=== PATIENT | female | born 1950 | race Caucasian/White ===

== ENCOUNTER 2019-06-08 10:01 | Inpatient (IN) ==
--- OUTSIDE RECORDS SUMMARY | 2019-06-08 10:03 | External Medical Summary | Continuity of Care Document ---
:1950 Author Name Susan Oviedo, Provider Address Unavailable Unavailable , Care Team Providers Name Role Phone Unavailable Unavailable Unavailable Problems Active medical history not documented Allergies and Adverse Reactions Allergy history not documented Medications Medications not documented Procedures Procedures not documented Immunizations Immunizations not documented Plan of Treatment Planned Observations Planned Goals not documented Results No Known Results Results not documented
[2019-06-08] MEDS ORDERED: ONDANSETRON INJ 2 MG/ML 2 ML VIAL IV STA (11:13)
[2019-06-08] MEDS ORDERED: KETOROLAC 30 MG/ML VIAL IV STA (11:13)
[2019-06-08] MEDS ORDERED: SODIUM CHLORIDE 0.9% 1000ML 1,000 ML IV SCH (11:15)
--- NOTE | 2019-06-08 11:31 | Emergency Department Note ---
History of Present Illness General Chief complaint: Flank Pain Stated complaint: PAIN IN RIGHT SIDE Time Seen by Provider: 06/08/19 11:04 History of Present Illness Maximum Pain Intensity: 8 This 69-year-old female presents to the ER with chief complaint of intermittent right flank pain that started yesterday. The patient states that when she has the pain it is sharp in nature and rates it at a 10 out of 10. She states that then goes to a dull achy pain that she rates at a 5 out of 10 which is the pain she currently is experiencing. The patient also admits to nausea but denies any vomiting. The patient denies any change in bowel habits. The patient does admit to urinary frequency but denies any dysuria, hematuria. She does admit to urinary urgency. The patient denies any personal history of kidney stones but she has a strong family history of kidney stones in her siblings. Home Medications Home Medications Medication Instructions Recorded Confirmed Type nitrofurantoin monohyd/m-cryst 100 mg PO BID 7 Days #14 cap 06/08/19 Rx [Macrobid] ondansetron 4 mg PO Q8H PRN 4 Days #15 tab 06/08/19 Rx oxycodone 5 mg PO Q6H PRN #12 tab 06/08/19 Rx Past Med/Surg History Medical History Hypertension No significant past surgical history Social History Preferred Language: Serbian Communication Ability: Effective Visual Impairment: No Limitations Hearing Ability: Normal marital status: Current Living Situation: Spouse Feels Safe at Home: Yes Smoking Status: Never smoker Hx Alcohol Use: Yes Review of Systems A total of 10 systems reviewed and were otherwise negative Physical Exam Vital Signs Vital Signs - 24 hr 06/08/19 10:12 06/08/19 11:35 Temperature 37.6 C H Temperature Source Oral Sepsis Recent Fever Within 48 Hours No Sepsis New/Unexplained Change in Mental Status No Sepsis Action Taken by Nursing No Action Required Pulse Rate 86 86 Pulse Rhythm Regular Respiratory Rate 18 18 Respiratory Depth Normal Blood Pressure 145/84 H Blood Pressure Mean 104 Pulse Oximetry 96 96 Oxygen Delivery Method Room Air Room Air GENERAL: 69-year-old white female appears in no acute distress. MENTAL Status: Alert and oriented x3. MOUTH: Mucosa is slightly dry. NECK: Supple, no lymphadenopathy noted. No carotid bruits noted. LUNGS: Clear auscultation without wheezes rales or rhonchi. CARDIAC: Regular rate and rhythm without murmur. Pulses is full and equal throughout. BACK: No CVA tenderness noted. ABDOMEN: Positive bowel sounds all 4 quadrants. Soft, mild tenderness to palpation in the right flank area and suprapubic region otherwise nontender to palpation without organomegaly or masses. EXTREMITIES: No cyanosis or edema noted. Course Administered Medications Discontinued Medications Sodium Chloride (Nss 1000ml) 1,000 mls @ 999 mls/hr IV .Q1H1M [place] Stop: 06/08/19 12:15 Last Admin: 06/08/19 11:38 Dose: 999 mls/hr Documented by: [id number] Ketorolac Tromethamine (Toradol) 30 mg IV NOW STA Stop: 06/08/19 11:14 Last Admin: 06/08/19 11:40 Dose: 30 mg Documented by: [id number] Ondansetron HCl (Zofran) 4 mg IV NOW STA Stop: 06/08/19 11:14 Last Admin: 06/08/19 11:40 Dose: 4 mg Documented by: [id number] Medical Decision Making Differential Diagnosis UTI, pyelonephritis, kidney stone, appendicitis Medical Records Attestation: I reviewed the patient's medical records. Home Medications Current Medication List: was personally reviewed by me Laboratory Data Attestation: I reviewed the patient's lab results. Result diagrams: 06/08/19 11:29 06/08/19 11:29 Lab Results 06/08/19 06/08/19 06/08/19 Range/Units 11:29 11:29 11:35 WBC 9.59 (4.8-10.8) K/uL RBC 4.49 (4.2-5.4) M/uL Hgb 13.9 (12.0-16.0) g/dL Hct 40.0 (37-47) % MCV 89.1 (80-100) fL MCH 31.0 (25-34) pg MCHC 34.8 (32-36) g/dL RDW Std Deviation 42.5 (36.4-46.3) fL RDW Coeff of Nikita 13.0 (11.5-14.5) % Plt Count 183 (130-400) K/uL MPV 10.1 (7.4-10.4) fL Immature Gran % (Auto) 0.2 % Neut % (Auto) 85.9 % Lymph % (Auto) 8.1 % Swisher % (Auto) 5.7 % Eos % (Auto) 0.0 % Baso % (Auto) 0.1 % Immature Gran # (Auto) 0.02 (0.00-0.02) K/uL Neut # (Auto) 8.23 H (1.4-6.5) K/uL Lymph # (Auto) 0.78 L (1.2-3.4) K/uL Swisher # (Auto) 0.55 (0.11-0.59) K/uL Eos # (Auto) 0.00 (0-0.5) K/uL Baso # (Auto) 0.01 (0-0.2) K/uL Sodium 138 (136-145) mmol/L Potassium 3.2 L (3.5-5.1) mmol/L Chloride 103 (98-107) mmol/L Carbon Dioxide 28 (21-32) mmol/L Anion Gap 7.0 (3-11) BUN 14 (7-18) mg/dl Creatinine 0.96 (0.6-1.2) mg/dl Est Cr Clr Drug Dosing 51.6 ml/min Est GFR ( Amer) 70.4 Est GFR (Non-Af Amer) 60.8 BUN/Creatinine Ratio 15.1 (10-20) Glucose 108 H (70-99) mg/dl Calcium 8.8 (8.5-10.1) mg/dl Total Bilirubin 0.9 (0.2-1) mg/dl AST 19 (15-37) U/L ALT 21 (12-78) U/L Alkaline Phosphatase 49 (45-117) U/L Total Protein 7.0 (6.4-8.2) gm/dl Albumin 3.5 (3.4-5.0) gm/dl Globulin 3.5 (2.5-4.0) gm/dl Albumin/Globulin Ratio 1.0 (0.9-2) Lipase 139 (73-393) U/L Urine Color Dark Yellow Urine Appearance Cloudy A (Clear) Urine pH 5.5 (4.5-7.5) Ur Specific [place] 1.015 (1.000-1.030) Urine Protein Trace H (Negative) Urine Glucose (UA) Negative (Negative) Urine Ketones Negative (Negative) Urine Blood 3+ H (Negative) Urine Nitrite Positive A (Negative) Urine Bilirubin Negative (Negative) Urine Urobilinogen Negative (Negative) Ur Leukocyte Esterase 3+ H (Negative) Urine WBC (Auto) >30 H (0-5) /hpf Urine RBC (Auto) >30 H (0-4) /hpf U Hyaline Cast (Auto) 1-5 (0-5) /lpf U Epithel Cells (Auto) >30 H (0-5) /lpf Urine Bacteria (Auto) Negative (Negative) Imaging Data Attestation: I personally reviewed and interpreted this imaging study as follows: My Impression: Proximal right ureteral calculus noted Radiologist's Impression: CT abd pelvis wo con CLINICAL HISTORY: 69 years-old Female presenting with Right flank pain. TECHNIQUE: Multidetector CT of the abdomen and pelvis was performed without the use of intravenous contrast. IV contrast: None. One or more dose lowering techniques were used consistent with the principles of ALARA (as low as reasonably achievable), including automatic exposure control, mA or kV adjustment to individual patient size, and/or use of iterative reconstruction. COMPARISON: None. CT DOSE (mGy.cm): The estimated cumulative dose is 499.78 mGy.cm. 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 Lung bases: Normal heart size. No pericardial or pleural effusion. Minimal dependent changes likely atelectasis. Liver: Normal morphology. Borderline hepatic steatosis. Biliary: No gross biliary ductal dilatation allowing for noncontrast technique. Normal gallbladder. Pancreas: Normal noncontrast appearance. Cystic-appearing lesion along the pancreatic tail. It is unclear if this is emanating from the stomach, pancreas, or less likely the left adrenal gland. This measures 3.1 cm. Spleen: Normal noncontrast appearance. Adrenal glands: Subcentimeter nodule at the lateral limb of the left adrenal g land. This is consistent with a benign adenoma by density. Normal noncontrast appearance of the right adrenal gland. Kidneys and ureters: Staghorn calculus at the upper pole of the left kidney. Bilateral nonobstructing calculi at the lower poles, the larger on the left measuring 5 mm there is additional punctate nonobstructing calculus at the upper pole of the right kidney. Moderate perinephric fat infiltration bilaterally. Minimal pelvocaliectasis of the right kidney with suggestion of tibial thickening. A partially obstructing or nonobstructing 4 mm calculus is evident immediately distal to the right ureteropelvic junction within the proximal right ureter with associated periureteral fat infiltration. The remainder of the right ureter is normal without evidence of calculus or distention. Left ureter nondistended and normal. Bladder: Incompletely evaluated secondary to underdistention. Pelvic organs: Normal noncontrast appearance. Bowel: Diverticulosis of the proximal to mid sigmoid colon to a mild degree. No wall thickening or pericolonic inflammatory change. The appendix is normal. No bowel obstruction. Peritoneal cavity: No free fluid or intraperitoneal gas. Lymph nodes: No gross lymphadenopathy allowing for noncontrast technique. Vasculature: Normal noncontrast appearance. Abdominal wall: Small fat-containing umbilical hernia. Musculoskeletal: Degenerative changes of the spine. IMPRESSION: 1. Partially obstructing or nonobstructing 4 mm calculus in the proximal right ureter immediately distal to the right UPJ. 2. Minimal right hydronephrosis. 3. Bilateral nonobstructing nephrolithiasis with a staghorn calculus at the upper pole the left kidney. 4. Indeterminate 3.1 cm cystic lesion at the tail the pancreas. It is unclear if this originates from the pancreas, stomach, or adjacent left adrenal gland. Dedicated contrast-enhanced pancreas protocol CT or MR is recommended on a nonurgent basis. 5. Diverticulosis coli. Electronically signed by: Abelardo Mooney M.D. 06/08/2019 12:03 PM Dictated: 06/08/19 1153 Transcribed: 06/08/19 1153 Blood Pressure Blood Pressure Findings: Elevated blood pressure Blood Pressure Disposition: elevated BP felt to be situational MDM Narrative The patient was evaluated. IV access was obtained. The patient was given 1 L normal saline wide open. She was given Zofran 4 mg IV push for nausea and Toradol 30 mg IV for pain. CBC and differential, renal profile, LFTs and lipase levels were ordered. Urinalysis was ordered. CT stone study was ordered interpreted by the radiologist and myself as above with a 4 mm proximal right ureteral stone with mild hydro-. There is also a incidental note of a cystic lesion on the tail the pancreas which needs further nonemergent work-up. Labs are reviewed. White count was normal. Urinalysis revealed 3+ blood positive nitrates and positive leukocytes. Urine will be sent for culture. The patient was informed of all findings. The patient was independently evaluated by Dr. Groves who agrees with treatment plan. The patient was discharged home in stable condition. Impression & Plan Ureteral calculus, right, Acute UTI, Cyst of pancreas Discharge Plan Visit Data Chief Complaint: Flank Pain Stated Complaint: PAIN IN RIGHT SIDE ED Provider: Ej Groves ED Midlevel Provider: Stacy Kruger Discharge Problem: Ureteral calculus, right, Acute UTI, Cyst of pancreas Patient Disposition: Home - Self-Care Condition: Good Discharge Instructions Activity Restrictions/Additional Instructions: For your urinary tract infectionpush fluids. Take Macrobid as prescribed. For the kidney stonesstrain all urine, push fluids. Take Zofran as needed for nausea. Ibuprofen 600 mg every 6 hours with food for pain. Take Flomax daily as directed. Take OxyIR as needed for more severe pain. Do not drive while taking the OxyIR. If you have any high fevers, uncontrolled nausea and vomiting, severe pain return the ER. If you do not pass the stone in 4 to 5 days, call Dr. John urology for an appointment. For this pancreatic cystfollow-up with your family doctor to order either a CT or MRI of the pancreas for further evaluation of the pancreas. Forms Stand Alone Forms: [facility], Important Visit Information Prescriptions Prescriptions: New ondansetron 4 mg tablet,disintegrating 4 mg PO Q8H PRN (Reason: nausea and vomiting) 4 Days Qty: 15 RF: 0 nitrofurantoin monohyd/m-cryst [Macrobid] 100 mg capsule 100 mg PO BID 7 Days Qty: 14 RF: 0 oxycodone 5 mg tablet 5 mg PO Q6H PRN (Reason: pain) Qty: 12 RF: 0 Referrals Referrals: Mack Ocampo [Primary Care Provider] - Chad John MD [Surgeon] -
[2019-06-08 11:44] LABS: Basophils # (auto) 0.01 K/uL (0-0.2); Basophils % (auto) 0.1 %; Hemoglobin 13.9 g/dL (12.0-16.0); Immature Granulocytes # (auto) 0.02 K/uL (0.00-0.02); Immature Granulocytes % (auto) 0.2 %; Lymphocytes # (auto) 0.78 K/uL (1.2-3.4); Lymphocytes % (auto) 8.1 %; Mean Corpuscular Hgb Conc 34.8 g/dL (32-36); Mean Corpuscular Volume 89.1 fL (80-100); Mean Platelet Volume 10.1 fL (7.4-10.4); Monocytes # (auto) 0.55 K/uL (0.11-0.59); Monocytes % (auto) 5.7 %; Neutrophils # (auto) 8.23 K/uL (1.4-6.5); Neutrophils % (auto) 85.9 %; Platelet Count 183 K/uL (130-400); RDW Standard Deviation 42.5 fL (36.4-46.3); Red Blood Count 4.49 M/uL (4.2-5.4); White Blood Count 9.59 K/uL (4.8-10.8)
[2019-06-08 11:49] LABS: Appearance Urine Cloudy (Clear); Bacteria Urine Automated Negative (Negative); Bilirubin Urine Negative (Negative); Blood Urine 3+ (Negative); Color Urine Dark Yellow; Epithelial Cell Urine Auto >30 /lpf (0-5); Glucose Urine UA Negative (Negative); Ketones Urine Negative (Negative); Leukocyte Esterase Urine 3+ (Negative); Nitrite Urine Positive (Negative); Protein Urine Trace (Negative); RBC Urine Automated >30 /hpf (0-4); Specific Gravity Urine 1.015 (1.000-1.030); Urobilinogen Urine Negative (Negative); WBC Urine Automated >30 /hpf (0-5); pH Urine 5.5 (4.5-7.5)
[2019-06-08 12:01] LABS: Albumin Level 3.5 gm/dl (3.4-5.0); BUN Creatinine Ratio 15.1 (10-20); Calcium 8.8 mg/dl (8.5-10.1); Creatinine Clr Calc Pharmacy 51.6 ml/min; Est GFR (African American) 70.4; Est GFR (Non-African American) 60.8; Potassium 3.2 mmol/L (3.5-5.1)
[2019-06-08 12:04] LABS: Bilirubin,Total 0.9 mg/dl (0.2-1); Globulin 3.5 gm/dl (2.5-4.0)
--- NOTE | 2019-06-08 12:04 | CT Scan Report ---
CT abd pelvis wo con CLINICAL HISTORY: 69 years-old Female presenting with Right flank pain. TECHNIQUE: Multidetector CT of the abdomen and pelvis was performed without the use of intravenous co ntrast. IV contrast: None. One or more dose lowering techniques were used consistent with the princip les of ALARA (as low as reasonably achievable), including automatic exposure control, mA or kV adjust ment to individual patient size, and/or use of iterative reconstruction. COMPARISON: None. CT DOSE (mGy.cm): The estimated cumulative dose is 499.78 mGy.cm. 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 Lung bases: Normal heart size. No pericardial or pleural effusion. Minimal dependent changes likely a telectasis. Liver: Normal morphology. Borderline hepatic steatosis. Biliary: No gross biliary ductal dilatation allowing for noncontrast technique. Normal gallbladder. Pancreas: Normal noncontrast appearance. Cystic-appearing lesion along the pancreatic tail. It is unc lear if this is emanating from the stomach, pancreas, or less likely the left adrenal gland. This nydia sures 3.1 cm. Spleen: Normal noncontrast appearance. Adrenal glands: Subcentimeter nodule at the lateral limb of the left adrenal gland. This is consisten t with a benign adenoma by density. Normal noncontrast appearance of the right adrenal gland. Kidneys and ureters: Staghorn calculus at the upper pole of the left kidney. Bilateral nonobstructing calculi at the lower poles, the larger on the left measuring 5 mm there is additional punctate nonob structing calculus at the upper pole of the right kidney. Moderate perinephric fat infiltration bilat erally. Minimal pelvocaliectasis of the right kidney with suggestion of tibial thickening. A partiall y obstructing or nonobstructing 4 mm calculus is evident immediately distal to the right ureteropelvi c junction within the proximal right ureter with associated periureteral fat infiltration. The remain marlys of the right ureter is normal without evidence of calculus or distention. Left ureter nondistende d and normal. Bladder: Incompletely evaluated secondary to underdistention. Pelvic organs: Normal noncontrast appearance. Bowel: Diverticulosis of the proximal to mid sigmoid colon to a mild degree. No wall thickening or pe ricolonic inflammatory change. The appendix is normal. No bowel obstruction. Peritoneal cavity: No free fluid or intraperitoneal gas. Lymph nodes: No gross lymphadenopathy allowing for noncontrast technique. Vasculature: Normal noncontrast appearance. Abdominal wall: Small fat-containing umbilical hernia. Musculoskeletal: Degenerative changes of the spine. IMPRESSION: 1. Partially obstructing or nonobstructing 4 mm calculus in the proximal right ureter immediately di stal to the right UPJ. 2. Minimal right hydronephrosis. 3. Bilateral nonobstructing nephrolithiasis with a staghorn calculus at the upper pole the left kidn ey. 4. Indeterminate 3.1 cm cystic lesion at the tail the pancreas. It is unclear if this originates fro m the pancreas, stomach, or adjacent left adrenal gland. Dedicated contrast-enhanced pancreas protoco l CT or MR is recommended on a nonurgent basis. 5. Diverticulosis coli. Electronically signed by: Abelardo Mooney M.D. 06/08/2019 12:03 PM
[2019-06-08] MEDS ORDERED: cefTRIAXone SODIUM 1,000 MG/50 ML BAG IV STA (12:45)
[2019-06-08] MEDS ORDERED: ACETAMINOPHEN 1,000 MG/100 ML VIAL IV PRN (12:56)
--- NOTE | 2019-06-08 13:25 | Urology Consultation ---
Date of Consultation June 08, 2019 Assessment & Plan (1) Ureteral calculus, right: I suspect she has infected urine and a partially obstructing right 4mm ureteral stone I suggest to OR today for stent get cathed urine for culture then start iv abt keep for observation 1-2 days her stone removal will be in a few weeks once urine infection is treated I described stent and she signed consent. NPO since early am and only had gatorade. no solid food since yesterday Present on Admission?: Yes History of Present Illness Reason for Consultation: right ureteral stone Requesting Physician: Inez Nguyễn History of Present Illness I am asked by Inez Kruger to evaluate and treat patient for right ureteral stone. She came to ER with right flank pain. She also has symptoms of UTI. She has had frequent utis. She had a ct scan which shows a right upper ureteral stone 4mm with mild hydro and increased right perinephric and leoncio-ureteral stranding. She also has large 15mm stones in the left upper pole. She is mildly febrile with normal white count. Urine looks dirty, cath urine is pending. Allergies Allergy/AdvReac Type Severity Reaction Status Date / Time Penicillins Allergy Rash Unverified 06/08/19 12:33 Home Medications Home Medications Medication Instructions Recorded Confirmed Type losartan-hydrochlorothiazide 1 tab PO DAILY 06/08/19 06/08/19 History Patient History Medical History Hypertension No significant past surgical history Social History Preferred Language: Emirati Communication Ability: Effective Visual Impairment: No Limitations Hearing Ability: Normal marital status: Current Living Situation: Spouse Feels Safe at Home: Yes Smoking Status: Never smoker Hx Alcohol Use: Yes Review of Systems Review of Systems: PMH- HTN PSH- breast biopsy bening Allergy- pCN decades ago Soc- retired, no tobacco ROS_ + fever, + chills, no chest pain no SOB, bowels fine, + dysuria and frequency, no rash, feels tired. Physical Exam Constitutional: WD/WN, vitals as above + obese Eyes: PERRL, conjunctivae normal, anicteric sclerae Respiratory: normal respiratory effort, lungs clear to auscultation Cardiovascular: RRR, no murmur, no edema Skin: no rashes, warm and dry legs- no edema and no calf tenderness Psychiatric: A+Ox3, euthymic affect Results & Data Vital Signs (Past 12 Hours) Vital Signs Temp Pulse Pulse Resp BP BP Pulse Ox 06/08/19 12:00 76 18 119/51 L 94 06/08/19 11:35 86 18 96 06/08/19 10:12 37.6 C H 86 18 145/84 H 96
--- NOTE | 2019-06-08 14:33 | History & Physical Report ---
Date of Service June 08, 2019 Assessment & Plan (1) Ureteral calculus, right: Admits to [facility] on telemetry for observation Vital signs every 4 hours CBC CMP BNP lipid panel TSH A1c Ceftriaxone 1 g IV every 24 for urinary tract infection and pyuria SCDs and BILL durant for DVT prophylaxis, patient is going to have cystoscopy today Appreciate Dr. Virginia Fontana MD urology recommendations Full code Present on Admission?: Yes (2) Acute UTI: As the above, follow-up urine cultures, continue antibiotics Present on Admission?: Yes (3) Cyst of pancreas: Stable at this time no issues, monitor Present on Admission?: Yes History of Present Illness Chief Complaint: Right flank pain Primary Care Provider: Mack Ocampo Patient is a 69 years old female with past medical history of cyst of pancreas presents to the emergency room with acute urinary tract infection and right flank pain. Patient denies fever chills chest pain shortness of breath abdominal pain syncope near syncope nausea vomiting acute hemoptysis hematuria melena. Complains of urinary frequency urgency and dysuria. Labs are reviewed white blood cell count 9.59,: Hemoglobin 13.9, hematocrit 40, platelets 183, BUN 14, creatinine 0.96, GFR 60.8 glucose 108 ALT 21 AST 19, lipase 139. Urine: Dark yellow, cloudy, 3+ blood, positive nitrate, leukocyte esterase 3+ white blood cell 30. CT scan shows: Partial obstruction or nonobstructing 4 mm calculus in the proximal right ureter immediately distal to the right UPJ. Minimal right hydronephrosis. Right nonobstructing nephrolithiasis with staghorn calculus at the upper pole the left kidney. Intermittent 3.1 cystic lesion in the tail of the pancreas. It is unclear if these are originated from the pancreas, stomach or adjacent left adrenal gland. Dedicated contrast- enhanced pancreas protocol or MRI is recommended. Diverticulosis coli. Allergies Allergy/AdvReac Type Severity Reaction Status Date / Time Penicillins Allergy Rash Unverified 06/08/19 12:33 Home Medications Home Medications Medication Instructions Recorded Confirmed Type losartan-hydrochlorothiazide 1 tab PO DAILY 06/08/19 06/08/19 History Past Med/Surg History Medical History Hypertension No significant past surgical history Social History Preferred Language: Bahamian Communication Ability: Effective Visual Impairment: No Limitations Hearing Ability: Normal marital status: Current Living Situation: Spouse Feels Safe at Home: Yes Smoking Status: Never smoker Hx Alcohol Use: Yes Review of Systems Review of Systems: All systems reviewed & are unremarkable except as noted in HPI & below Physical Exam Constitutional: WD/WN, vitals as above well developed Eyes: PERRL, conjunctivae normal, anicteric sclerae ENMT: external ear and nose normal, oropharynx normal Neck: trachea midline, no thyromegaly Respiratory: normal respiratory effort, lungs clear to auscultation Cardiovascular: RRR, no murmur, no edema Musculoskeletal: no cyanosis or clubbing, extremities motor strength 5/5 Skin: no rashes, warm and dry Neurologic: patellar DTR's 2+ bilat, sensation intact Genitourinary: Right CVA tenderness Lymphatic: no cervical or axillary lymphadenopathy Results & Data Vital Signs (Past 12 Hours) Vital Signs Temp Pulse Pulse Resp BP BP Pulse Ox 06/08/19 13:30 76 26 H 128/57 L 93 06/08/19 13:00 75 23 120/58 L 93 06/08/19 12:00 76 18 119/51 L 94 06/08/19 11:35 86 18 96 06/08/19 10:12 37.6 C H 86 18 145/84 H 96 Code Status & VTE Plan Code Status Full code VTE Prophylaxis Plan VTE Prophylaxis will be ordered: No PG Care Time/CCT Total # of Minutes Spent Total Time Spent with Patient: Total time spent is greater than 50% in coordination of care (as documented) at patient's floor/unit and/or counseling patient:
--- NOTE | 2019-06-08 14:52 | Emergency Department Note ---
Entered by Lyndsey Sibley acting as a scribe for Ej Groves MD ED Visit Note The patient was seen and examined by myself in conjunction with the advanced care provider, Stacy Kruger PA-C. I agree with the history, physical and findings as documented. Please see the note for disposition and details. Flank pain with staghorn calculi and 4 mm nonobstructing or partially obstructing UPJ stone. Questionable infection but a lot of epithelial cells. Patient is admitted for observation. The scribe's documentation has been prepared under my direction and personally reviewed by me in its entirety. I confirm that the note above accurately reflects all work, treatment, procedures, and medical decision making performed by me.
[2019-06-08] MEDS ORDERED: LIDOCAINE HCL 2% 2 ML VIAL/AMP(20MG/ML) INFIL ONE (15:10)
[2019-06-08] MEDS ORDERED: ONDANSETRON INJ 2 MG/ML 2 ML VIAL ONE (15:10)
[2019-06-08] MEDS ORDERED: DEXAMETHASONE SOD INJ 4 MG/ML VIAL ONE (15:10)
[2019-06-08] MEDS ORDERED: MIDAZOLAM HCL 1 MG/ML 2ML VIAL ONE (15:10)
[2019-06-08] MEDS ORDERED: PROPOFOL IV EMULSION 10 MG/ML 20 ML VIAL IV ONE (15:10)
[2019-06-08] MEDS ORDERED: fentaNYL citrate 100 MCG/2 ML VIAL ONE (15:10)
--- NOTE | 2019-06-08 15:34 | Anesthesiology Consultation ---
Date of Service June 08, 2019 Assessment & Plan (1) Encounter for pre-operative examination: Chart Review Chart Review: Acceptable Risk for Surgery and Patient NOT seen in Pre Admission Testing Consults Requested none ASA ASA2 Proposed Anesthesia Anesthesia Type: MAC History Surgery Operation Date: 06/08/19 15:25 Proposed Procedures p Cystoscopy, Right Stent Placement - Virginia Fontana MD Height/Weight Height: 5 ft 1 in Weight: 74 kg Allergies Allergy/AdvReac Type Severity Reaction Status Date / Time Penicillins Allergy Rash Unverified 06/08/19 12:33 Medications Home Medications Medication Instructions Recorded Confirmed Last Taken losartan-hydrochlorothiazide 1 tab PO DAILY 06/08/19 06/08/19 Unknown Active Medications Generic Name Dose Route Start Last Admin Trade Name Freq PRN Reason Stop Dose Admin Acetaminophen 1,000 mg in 100 mls @ 400 mls/hr 06/08/19 12:56 06/08/19 13:42 Ofirmev IV 07/08/19 12:55 Infused Q8H PRN Infusion Fever NPO Date Last Intake of Fluids: 06/08/19 Time Last Intake of Fluids: 08:00 Date Last Intake of Solids: 06/07/19 Time Last Intake of Solids: 10:00 Past Medical History Medical History Hypertension No significant past surgical history Social History Smoking Status: Never smoker Hx Alcohol Use: Yes Physical Exam Vital Signs Last Vital Signs Temp 37 C 06/08/19 15:20 Pulse 72 06/08/19 15:09 Resp 18 06/08/19 15:20 BP 136/62 06/08/19 15:20 Pulse Ox 95 06/08/19 15:20 Testing Laboratory Results 06/08/19 11:29 06/08/19 11:29 Urine Color Dark Yellow 06/08/19 11:35 Urine Appearance Cloudy (Clear) A 06/08/19 11:35 Urine pH 5.5 (4.5-7.5) 06/08/19 11:35 Ur Specific [place] 1.015 (1.000-1.030) 06/08/19 11:35 Urine Protein Trace (Negative) H 06/08/19 11:35 Urine Glucose (UA) Negative (Negative) 06/08/19 11:35 Urine Ketones Negative (Negative) 06/08/19 11:35 Urine Nitrite Positive (Negative) A 06/08/19 11:35 Ur Leukocyte Esterase 3+ (Negative) H 06/08/19 11:35 Urine WBC (Auto) >30 /hpf (0-5) H 06/08/19 11:35 Urine RBC (Auto) >30 /hpf (0-4) H 06/08/19 11:35 U Hyaline Cast (Auto) 1-5 /lpf (0-5) 06/08/19 11:35 U Epithel Cells (Auto) >30 /lpf (0-5) H 06/08/19 11:35 Urine Bacteria (Auto) Negative (Negative) 06/08/19 11:35
[2019-06-08] MEDS ORDERED: fentaNYL citrate 100 MCG/2 ML VIAL IV PRN (15:37)
[2019-06-08] MEDS ORDERED: ePHEDrine sulfate 50 MG/ML AMP IV PRN (15:37)
[2019-06-08] MEDS ORDERED: ATROPINE SULFATE 0.1 MG/ML 10ML SYR IV PRN (15:37)
[2019-06-08] MEDS ORDERED: BELLADONNA/OPIUM SUPP 60 MG SUPP PR ONE (16:03)
[2019-06-08] MEDS ORDERED: PHENAZOPYRIDINE HCL 200 MG TAB PO PRN (16:15)
--- NOTE | 2019-06-08 16:15 | Operative Report ---
Post Operative Report Pre & Post Diagnosis Operation Date: 06/08/19 15:25 Pre-Op Diagnosis: Right Ureteral Calculus Post-Op Diagnosis: Right Ureteral Calculus Procedure Operation Date: 06/08/19 15:25 Actual Procedures p Cystoscopy, Right Ureteral Stent Placement(Not Applicable) - Virginia Fontana MD Surgeon Virignia Fontana MD Healthcare Economics Manager none Estimated Blood Loss 0 Findings Consistent with Post-Op Diagnosis radio-lucent right upper ureteral stone Fluids 600 Specimens none Drains 6 fr 22 centimeter double J stent Anesthesia Type MAC Complications none Disposition Accompanied Patient To Recovery: Yes Disposition: Recovery Room Indications Fever with 4mm right upper ureteral stone and uti Description of Procedure Patient was sedated and placed in lithotomy position. Her genitals were prepped and draped in sterile fashion. Time out held with team. I placed a 21 fr rigid cystoscope to bladder. The urethra is narrowed at the meatus and snug to the scope. The UOs are round shape. the bladder is inflamed with white sediment noted in urine. urine is very concentrated. I placed a road runner wire up right ureter and placed a 24 centimeter 6 Fr double J stent easily. There is brisk efflux after placement. I left bladder empty and concluded case. I placed a belladonna and opium suppository for post-op pain. She transferred to recovery under my escort, in stable condition. Plan: observe in hospital for infection Pyridium for dysuria x 3 days flomax daily oral pain meds as needed stone surgery in 1-2 weeks ASA 2 dirty case 4 seconds fluoro ceftriaxone antibiotic given earlier today in ER I attest to the content of the Intraoperative Record and any orders documented therein. Any exceptions are noted below.
--- NOTE | 2019-06-08 16:23 | Anesthesiology Progress Note ---
Date of Service June 08, 2019 Anesthesia Post Procedure Vital Signs Vital Signs: Temp Pulse Pulse Resp BP BP Pulse Ox 06/08/19 15:20 37 C 18 136/62 95 06/08/19 15:09 72 14 113/52 L 95 06/08/19 15:01 72 14 113/52 L 95 06/08/19 14:30 71 24 140/76 91 06/08/19 14:00 71 19 109/49 L 92 06/08/19 13:30 76 26 H 128/57 L 93 06/08/19 13:00 75 23 120/58 L 93 06/08/19 12:00 76 18 119/51 L 94 06/08/19 11:35 86 18 96 06/08/19 10:12 37.6 C H 86 18 145/84 H 96 Pain Intensity Right Flank: Pain Intensity: 4 Transfer of Care Handoff Completed per policy Notes Mental Status: alert / awake / arousable Patient Amnestic to Procedure: Yes Nausea / Vomiting: adequately controlled Pain: adequately controlled Airway Patency, RR, SpO2: stable & adequate BP & HR: stable & adequate Hydration State: stable & adequate Anesthetic Complications: no major complications apparent and Pt Satisfied with anesthetic care
--- NOTE | 2019-06-08 16:24 | Fluoroscopy Report ---
INTRAOPERATIVE RADIOGRAPH CLINICAL HISTORY: Right ureteral stent placement. Laser lithotripsy. Fluoroscopy time: 5 seconds. FINDINGS: A single spot fluoroscopic image of the right upper quadrant from a laser lithotripsy and u reteral stent placement procedure is presented. The proximal end of a right ureteral stent projects o ana the right renal pelvis. No calcification is seen along the course of the proximal stent. There is residual contrast within the right renal collecting system. IMPRESSION: Intraoperative image from a right ureteral stent placement procedure as above. Electronically signed by: Cal Figueroa M.D. 06/08/2019 4:23 PM
[2019-06-08] MEDS ORDERED: ONDANSETRON INJ 2 MG/ML 2 ML VIAL IV PRN (17:04)
[2019-06-08] MEDS ORDERED: ZOLPIDEM TARTRATE 5 MG TAB PO PRN (17:04)
[2019-06-08] MEDS ORDERED: NSS + 20MEQ KCL 20 MEQ/1,000 ML BAG IV SCH (17:04)
[2019-06-08] MEDS ORDERED: ALUMINUM/MAGNESIUM SUSP 30 ML UDC PO PRN (17:04)
[2019-06-08] MEDS ORDERED: POLYETHYLENE (MIRALAX) 17 GM PACK PO PRN (17:04)
[2019-06-08] MEDS ORDERED: MAGNESIUM HYDROXIDE SUSP 30 ML UDC PO PRN (17:04)
[2019-06-08] MEDS: OXYCODONE/ACETAMINOPHEN 5mg/325mg TAB PO PRN (21:32)
[2019-06-08] MEDS: TAMSULOSIN HCL 0.4 MG CAP PO SCH (21:33)
[2019-06-08] MEDS: ACETAMINOPHEN 325 MG TAB PO PRN (23:39)
[2019-06-09] MEDS: LOSARTAN/HCTZ 50/12.5MG TAB PO SCH (07:58)
[2019-06-09 08:02] LABS: Basophils # (auto) 0.01 K/uL (0-0.2); Basophils % (auto) 0.1 %; Hematocrit (blood only) 34.7 % (37-47); Hemoglobin 11.6 g/dL (12.0-16.0); Immature Granulocytes # (auto) 0.04 K/uL (0.00-0.02); Immature Granulocytes % (auto) 0.5 %; Lymphocytes # (auto) 0.65 K/uL (1.2-3.4); Mean Corpuscular Hemoglobin 30.2 pg (25-34); Mean Corpuscular Hgb Conc 33.4 g/dL (32-36); Mean Corpuscular Volume 90.4 fL (80-100); Mean Platelet Volume 10.5 fL (7.4-10.4); Monocytes # (auto) 0.46 K/uL (0.11-0.59); Monocytes % (auto) 5.7 %; Neutrophils # (auto) 6.93 K/uL (1.4-6.5); Neutrophils % (auto) 85.7 %; Platelet Count 137 K/uL (130-400); RDW Coefficient of Variation 13.5 % (11.5-14.5); RDW Standard Deviation 44.9 fL (36.4-46.3); Red Blood Count 3.84 M/uL (4.2-5.4); White Blood Count 8.09 K/uL (4.8-10.8)
[2019-06-09 08:47] LABS: Albumin Level 2.9 gm/dl (3.4-5.0); BUN Creatinine Ratio 16.9 (10-20); Calcium 8.1 mg/dl (8.5-10.1); Creatinine Clr Calc Pharmacy 42.6 ml/min; Est GFR (African American) 54.9; Est GFR (Non-African American) 47.4; Potassium 3.4 mmol/L (3.5-5.1)
[2019-06-09 08:54] LABS: Estimated Average Glucose 123 mg/dl; Hemoglobin A1C 5.9 % (4.5-5.6)
[2019-06-09 08:58] LABS: Albumin Globulin Ratio 0.9 (0.9-2); Bilirubin,Total 0.5 mg/dl (0.2-1); Globulin 3.4 gm/dl (2.5-4.0); Thyroid Stimulating Hormone 1.18 uIu/ml (0.300-4.500); Total Protein 6.3 gm/dl (6.4-8.2)
[2019-06-09] MEDS ORDERED: cefTRIAXone SODIUM 2,000 MG in DEXTROSE 5% 50 ML IV SCH (09:45)
[2019-06-09] MEDS ORDERED: PERFLUTREN LIPID MICROSPHERE (DEFINITY) IV ONE (09:53)
--- NOTE | 2019-06-09 09:58 | Urology Progress Note ---
Date of Service June 09, 2019 Assessment & Plan (1) Ureteral calculus, right: Stent placed successfully last night. Feeling better Needs 2 weeks of abx Ideally, await urine cx results prior to discharge, otherwise, send home with Bactrim or Cipro. Will f/u in 2 weeks for staged Uscope to remove stone (2) Acute UTI: Subjective No acute events. Tolerated stent placement Urine cultures pending Less pain. Reports urge and freq. Occ dysuria Review of Systems Review of Systems: All systems reviewed & are unremarkable except as noted in HPI & below Physical Exam Constitutional: WD/WN, vitals as above Cardiovascular: RRR, no murmur, no edema Results & Data Vital Signs (Past 12 Hours) Vital Signs Temp Pulse Pulse Resp BP Pulse Ox 06/09/19 07:55 37.3 C 06/09/19 07:04 37.6 C H 60 16 102/58 L 98 06/09/19 05:10 37.0 C 74 18 93/51 L 96 06/08/19 23:51 86 06/08/19 23:00 38.5 C H 93 H 19 144/64 H 92
[2019-06-09] MEDS: ACETAMINOPHEN 325 MG TAB PO PRN ×2 (11:37→16:40)
--- NOTE | 2019-06-09 15:47 | Hospitalist Progress Note ---
Date of Service June 09, 2019 Assessment & Plan (1) Ureteral calculus, right: S/p right ureteral stent with Dr. Fontana on 06/08. - Continue abx - Follow urine culture from 06/08 - Febrile on 06/09 & blood cultures done - Follow blood cultures - Continue ceftriaxone - Pain and nausea control PRN - 2 week outpatient follow up for cystoscopy (2) Acute UTI: As the above, follow-up urine culture, blood cultures, continue antibiotics (3) Cyst of pancreas: CT a/p on 06/08 showed 3.1 cm cystic lesion at the tail the pancreas. - Outpatient follow up for MRI or CT (4) Diastolic dysfunction: Echo ordered on 06/09 for unclear reasons. Shows normal EF 60-65% with Grade II diastolic dysfunction. No symptoms of shortness of breath, no LE edema. - No inpatient needs (5) DVT prophylaxis: SCDs - Low DVT risk per admission calculator Subjective Feels quite well this morning. Minimal, cramping abdominal pain. No dysuria. Urine is reddish-orange from the Pyrdium. Review of Systems Review of Systems: All systems reviewed & are unremarkable except as noted in HPI & below Physical Exam Constitutional: WD/WN, vitals as above Eyes: EOM intact bilaterally; no conjunctival abnormality ENMT: external ear and nose normal, oropharynx normal Neck: trachea midline, no thyromegaly normal visual inspection Respiratory: normal respiratory effort, lungs clear to auscultation no respiratory distress Cardiovascular: RRR, no murmur, no edema Gastrointestinal (Abdomen): Inspection/Auscultation: abdomen normal to inspection; abdomen not distended Musculoskeletal: no cyanosis or clubbing, extremities motor strength 5/5 Skin: no rashes, warm and dry Neurologic: moves all extremities and awake Psychiatric: Orientation: alert, oriented to person and cooperative Genitourinary: no CVA tenderness Results & Data Vital Signs (Past 12 Hours) Vital Signs Temp Pulse Pulse Resp BP Pulse Ox 06/09/19 12:47 37.8 C H 06/09/19 11:34 96 06/09/19 11:32 38.4 C H 83 18 122/61 96 06/09/19 08:00 71 06/09/19 07:55 37.3 C 06/09/19 07:04 37.6 C H 60 16 102/58 L 98 06/09/19 05:10 37.0 C 74 18 93/51 L 96 PG Care Time/CCT Total # of Minutes Spent Total Time Spent with Patient: Total time spent is greater than 50% in coordination of care (as documented) at patient's floor/unit and/or counseling patient:
[2019-06-09] MEDS ORDERED: POTASSIUM CHLORIDE 20 MEQ TABCR PO ONE (16:15)
[2019-06-09] MEDS ORDERED: PNEUMOCOCCAL ADMINISTRATION CHARGE ONE (19:30)
[2019-06-09] MEDS ORDERED: PNEUMOCOCCAL POLYSACCHARIDES 25 MCG/0.5 ML VIAL/SYR IM ONE (19:30)
[2019-06-09] MEDS: ERTAPENEM SODIUM 1,000 MG in SODIUM CHLORIDE 0.9% 50 ML IV SCH (19:38)
[2019-06-09] MEDS: TAMSULOSIN HCL 0.4 MG CAP PO SCH (19:40)
[2019-06-09 20:35] LABS: Appearance Urine Turbid (Clear); Bilirubin Urine Negative (Negative); Blood Urine 3+ (Negative); Color Urine Brown; Glucose Urine UA Negative (Negative); Ketones Urine Negative (Negative); Leukocyte Esterase Urine 1+ (Negative); Nitrite Urine Negative (Negative); Protein Urine 2+ (Negative); Urobilinogen Urine Negative (Negative)
[2019-06-09 20:44] LABS: Bacteria Urine 2+ (Negative); Epithelial Cell Urine >30 /lpf (0-5); RBC Urine >30 /hpf (0-4); WBC Urine >30 /hpf (0-5)
[2019-06-09] MEDS: OXYCODONE/ACETAMINOPHEN 5mg/325mg TAB PO PRN (22:58)
[2019-06-10 06:29] LABS: Basophils # (auto) 0.02 K/uL (0-0.2); Basophils % (auto) 0.2 %; Eosinophils # (auto) 0.08 K/uL (0-0.5); Eosinophils % (auto) 0.9 %; Hemoglobin 11.6 g/dL (12.0-16.0); Immature Granulocytes # (auto) 0.02 K/uL (0.00-0.02); Immature Granulocytes % (auto) 0.2 %; Lymphocytes # (auto) 1.56 K/uL (1.2-3.4); Lymphocytes % (auto) 17.8 %; Mean Corpuscular Hemoglobin 30.1 pg (25-34); Mean Corpuscular Hgb Conc 33.1 g/dL (32-36); Mean Corpuscular Volume 90.7 fL (80-100); Mean Platelet Volume 10.7 fL (7.4-10.4); Monocytes # (auto) 0.82 K/uL (0.11-0.59); Monocytes % (auto) 9.4 %; Neutrophils # (auto) 6.25 K/uL (1.4-6.5); Neutrophils % (auto) 71.5 %; Platelet Count 132 K/uL (130-400); RDW Coefficient of Variation 13.3 % (11.5-14.5); Red Blood Count 3.86 M/uL (4.2-5.4); White Blood Count 8.75 K/uL (4.8-10.8)
[2019-06-10 06:57] LABS: Albumin Level 2.6 gm/dl (3.4-5.0); BUN Creatinine Ratio 19.8 (10-20); Calcium 8.1 mg/dl (8.5-10.1); Creatinine Clr Calc Pharmacy 50.9 ml/min; Est GFR (African American) 67.9; Est GFR (Non-African American) 58.6; Potassium 3.9 mmol/L (3.5-5.1)
[2019-06-10 07:00] LABS: Albumin Globulin Ratio 0.7 (0.9-2); Bilirubin,Total 0.4 mg/dl (0.2-1); Globulin 3.6 gm/dl (2.5-4.0); Total Protein 6.2 gm/dl (6.4-8.2)
[2019-06-10] MEDS: LOSARTAN/HCTZ 50/12.5MG TAB PO SCH (07:50)
[2019-06-10] MEDS: ACETAMINOPHEN 325 MG TAB PO PRN (07:51)
--- NOTE | 2019-06-10 09:38 | Urology Progress Note ---
Date of Service June 10, 2019 Assessment & Plan (1) Ureteral calculus, right: Stent placed successfully Tuesday night. Feeling better Urine cultures show Proteus. Rec 2 weeks of Bactrim based on sensitivities. Will f/u in 2 weeks for staged Uscope to remove stone OK for discharge home later today as long as fevers subside and pt is feeling well enough (2) Acute UTI: Subjective Yesterday continued to have fevers. Abx changed to broader coverage. Voiding with urge and freq. Min discomfort in flank due to stent No hem. No dys. Feels like she is emptying. Urine cx from 06/08 shows Proteus (with resist to Cipro) Blood cx pending. Review of Systems Review of Systems: All systems reviewed & are unremarkable except as noted in HPI & below Physical Exam Constitutional: WD/WN, vitals as above Cardiovascular: RRR, no murmur, no edema Results & Data Vital Signs (Past 12 Hours) Vital Signs Temp Pulse Pulse Resp BP BP Pulse Ox 06/10/19 09:25 37.2 C 06/10/19 08:00 82 06/10/19 07:55 38.1 C H 89 18 133/65 90 06/10/19 03:00 37.1 C 69 20 112/59 L 98 06/09/19 22:00 37.2 C 78 18 104/60 95/54 L 94
[2019-06-10] MEDS ORDERED: cefTRIAXone SODIUM 1,000 MG in DEXTROSE 5% 50 ML IV SCH (10:00)
[2019-06-10] MEDS ORDERED: SODIUM CHLORIDE 0.65% NA SOLN 45 ML (OCEAN) PRN (11:47)
[2019-06-10] MEDS ORDERED: IBUPROFEN 600 MG TAB PO STA (11:47)
[2019-06-10] MEDS ORDERED: IBUPROFEN 600 MG TAB PO PRN (11:47)
--- NOTE | 2019-06-10 11:48 | Hospitalist Progress Note ---
Date of Service June 10, 2019 Assessment & Plan (1) Ureteral calculus, right: S/p right ureteral stent with Dr. Fontana on 06/08 for a 4 mm stone that was obstructing on the right causing hydronephrosis No renal failure, but with UTI and sepsis as below. Symptomatically much improved - Continue abx in the form of ertapenem as below and eventual conversion to oral antibiotics x2 weeks total -Continue to follow blood cultures and urine culture as below - Pain and nausea control PRN - 2 week outpatient follow up for cystoscopy (2) Acute UTI: With evidence of UTI on urinalysis upon admission Urine culture from 06/08 growing Proteus mirabilis resistant only to Cipro Was initially on ceftriaxone but continued to spike fevers and was broadened to ertapenem on 06/09 Continues with fevers in the a.m. of 06/10-also with some sinus pressure-question if has acute sinusitis causing fevers, however Rocephin and ertapenem would also treat for this -Question if fevers coming from an infected staghorn calculus on the left? -Continue to follow fever curve, continue acetaminophen or ibuprofen as needed for pain and fever -Repeat urine culture now with no growth - will likely convert to oral Bactrim x2-week course total upon discharge- hopefully tomorrow (3) Sepsis: POA secondary to UITI, with fever, tachycardia Also with bilateral maxillary facial pressure, could be acute sinusitis? Either way, Rocephin and ertapenem should cover for both Fevers persist today as above Ur cx with Proteus resistant to Cipro Broadened to Ertapenem on evening of 06/09 for persistent fevers, had repeat UA and Ur cx-no growth BCxs 06/09 NGTD -continue ertapenem for now (4) Hypoxia: Could be secondary to atelectasis Mild, POx 92% on RA today -add IS q1 hr while awake -encouraged mobilization (5) Sinus pressure: as above, could be sinusitis -add nasal saline, ibuprofen, Sudafed 30 mill grams p.o. every 6 hours as needed -continue abx -No need for imaging unless has persistent fevers tomorrow (6) Diastolic dysfunction: Echo ordered on 06/09 for unclear reasons. Shows normal EF 60-65% with Grade II diastolic dysfunction. No symptoms of shortness of breath, no LE edema. - No inpatient needs (7) Cyst of pancreas: CT a/p on 06/08 showed 3.1 cm cystic lesion at the tail the pancreas. - Outpatient follow up for MRI or CT (8) DVT prophylaxis: SCDs - Low DVT risk per admission calculator, plus also with hematuria would not give heparin Disposition-remain on medical floor with telemetry, hopeful for discharge to home tomorrow if fevers subside Subjective Patient reports a lot of sinus pressure in the bilateral face over the cheekbones and difficulty breathing through her nose. She is not blowing anything out of her nose. She has not been out of bed much and has had some mild hypoxia, with nasal cannula in place since yesterday. Denies headache. Continues to have fevers today. Has some very mild right- sided abdominal pain which is significantly improved since admission and stent placement. Denies back pain or other abdominal pain, still with some hematuria but no dysuria. Has chronic urinary frequency which is unchanged from previous. Denies sore throat or cough, no chest pain or shortness of breath. Telemetry with normal sinus rhythm and sinus tachycardia with rates in the 70s to 110s Review of Systems Review of Systems: All systems reviewed & are unremarkable except as noted in HPI & below Physical Exam Constitutional: WD/WN, vitals as above Eyes: PERRL, conjunctivae normal, anicteric sclerae ENMT: external ear and nose normal, oropharynx normal Nose: no nasal discharge, no sinus tenderness and no facial exam abnormality Neck: trachea midline, no thyromegaly Respiratory: normal respiratory effort, lungs clear to auscultation Cardiovascular: RRR, no murmur, no edema Gastrointestinal (Abdomen): normal bowel sounds, soft, nontender, no hepatosplenomegaly Musculoskeletal: Extremities: extremities normal to inspection; no cyanosis and no clubbing Skin: no rashes, warm and dry Neurologic: moves all extremities and awake; no focal motor deficits Psychiatric: A+Ox3, euthymic affect Results & Data Vital Signs (Past 12 Hours) Vital Signs Temp Pulse Pulse Resp BP Pulse Ox 06/10/19 11:36 36.9 C 69 18 109/55 L 97 06/10/19 09:25 37.2 C 06/10/19 08:00 82 06/10/19 07:55 38.1 C H 89 18 133/65 90 06/10/19 03:00 37.1 C 69 20 112/59 L 98 Laboratory Results 06/10/19 06/10/19 06/09/19 Range/Units 05:57 05:57 19:55 WBC 8.75 (4.8-10.8) K/uL RBC 3.86 L (4.2-5.4) M/uL Hgb 11.6 L (12.0-16.0) g/dL Hct 35.0 L (37-47) % MCV 90.7 (80-100) fL MCH 30.1 (25-34) pg MCHC 33.1 (32-36) g/dL RDW Std Deviation 44.0 (36.4-46.3) fL RDW Coeff of [place]ita 13.3 (11.5-14.5) % Plt Count 132 (130-400) K/uL MPV 10.7 H (7.4-10.4) fL Immature Gran % (Auto) 0.2 % Neut % (Auto) 71.5 % Lymph % (Auto) 17.8 % [place] % (Auto) 9.4 % Eos % (Auto) 0.9 % Baso % (Auto) 0.2 % Immature Gran # (Auto) 0.02 (0.00-0.02) K/uL Neut # (Auto) 6.25 (1.4-6.5) K/uL Lymph # (Auto) 1.56 (1.2-3.4) K/uL [place] # (Auto) 0.82 H (0.11-0.59) K/uL Eos # (Auto) 0.08 (0-0.5) K/uL Baso # (Auto) 0.02 (0-0.2) K/uL Sodium 137 (136-145) mmol/L Potassium 3.9 (3.5-5.1) mmol/L Chloride 105 (98-107) mmol/L Carbon Dioxide 26 (21-32) mmol/L Anion Gap 6.0 (3-11) BUN 20 H (7-18) mg/dl Creatinine 0.99 (0.6-1.2) mg/dl Est Cr Clr Drug Dosing 50.9 ml/min Est GFR ( Amer) 67.9 Est GFR (Non-Af Amer) 58.6 BUN/Creatinine Ratio 19.8 (10-20) Glucose 94 (70-99) mg/dl Calcium 8.1 L (8.5-10.1) mg/dl Total Bilirubin 0.4 (0.2-1) mg/dl AST 22 (15-37) U/L ALT 18 (12-78) U/L Alkaline Phosphatase 42 L (45-117) U/L Total Protein 6.2 L (6.4-8.2) gm/dl Albumin 2.6 L (3.4-5.0) gm/dl Globulin 3.6 (2.5-4.0) gm/dl Albumin/Globulin Ratio 0.7 L (0.9-2) Urine Color Brown Urine Appearance Turbid A (Clear) Urine pH 6.0 (4.5-7.5) Ur Specific [place] 1.020 (1.000-1.030) Urine Protein 2+ H (Negative) Urine Glucose (UA) Negative (Negative) Urine Ketones Negative (Negative) Urine Blood 3+ H (Negative) Urine Nitrite Negative (Negative) Urine Bilirubin Negative (Negative) Urine Urobilinogen Negative (Negative) Ur Leukocyte Esterase 1+ H (Negative) Urine RBC >30 H (0-4) /hpf Urine WBC >30 H (0-5) /hpf Ur Epithelial Cells >30 H (0-5) /lpf Urine Bacteria 2+ H (Negative) Urine culture 06/08 with Proteus mirabilis resistant only to Cipro Urine culture 06/09 with no growth Blood cultures from 06/09-no growth to date PG Care Time/CCT Total # of Minutes Spent Total Time Spent with Patient: Total time spent is greater than 50% in coordi nation of care (as documented) at patient's floor/unit and/or counseling patient:
[2019-06-10] MEDS ORDERED: PSEUDOEPHEDRINE HCL 30 MG TAB PO PRN (18:26)
[2019-06-10] MEDS: ERTAPENEM SODIUM 1,000 MG in SODIUM CHLORIDE 0.9% 50 ML IV SCH (18:28)
[2019-06-10] MEDS: TAMSULOSIN HCL 0.4 MG CAP PO SCH (20:28)
[2019-06-11 07:18] LABS: Basophils # (auto) 0.02 K/uL (0-0.2); Basophils % (auto) 0.3 %; Eosinophils # (auto) 0.18 K/uL (0-0.5); Eosinophils % (auto) 2.5 %; Hematocrit (blood only) 31.3 % (37-47); Hemoglobin 10.5 g/dL (12.0-16.0); Immature Granulocytes # (auto) 0.01 K/uL (0.00-0.02); Immature Granulocytes % (auto) 0.1 %; Lymphocytes # (auto) 0.82 K/uL (1.2-3.4); Lymphocytes % (auto) 11.3 %; Mean Corpuscular Hemoglobin 29.9 pg (25-34); Mean Corpuscular Hgb Conc 33.5 g/dL (32-36); Mean Corpuscular Volume 89.2 fL (80-100); Mean Platelet Volume 10.5 fL (7.4-10.4); Monocytes # (auto) 0.85 K/uL (0.11-0.59); Monocytes % (auto) 11.8 %; Neutrophils # (auto) 5.35 K/uL (1.4-6.5); Platelet Count 162 K/uL (130-400); RDW Coefficient of Variation 13.1 % (11.5-14.5); RDW Standard Deviation 42.7 fL (36.4-46.3); Red Blood Count 3.51 M/uL (4.2-5.4); White Blood Count 7.23 K/uL (4.8-10.8)
[2019-06-11 07:46] LABS: Albumin Level 2.3 gm/dl (3.4-5.0); BUN Creatinine Ratio 20.8 (10-20); Bilirubin Direct 0.1 mg/dl (0-0.2); Calcium 7.8 mg/dl (8.5-10.1); Creatinine Clr Calc Pharmacy 65.6 ml/min; Est GFR (Non-African American) 79.3; Potassium 3.7 mmol/L (3.5-5.1)
[2019-06-11 07:48] LABS: Bilirubin,Total 0.6 mg/dl (0.2-1); Total Protein 5.6 gm/dl (6.4-8.2)
[2019-06-11] MEDS: LOSARTAN/HCTZ 50/12.5MG TAB PO SCH (07:54)
[2019-06-11] MEDS: ACETAMINOPHEN 325 MG TAB PO PRN (07:55)
--- NOTE | 2019-06-11 08:13 | Anesthesiology Progress Note ---
Date of Service June 11, 2019 Anesthesia Post Procedure Vital Signs Vital Signs: Temp Pulse Pulse Resp BP BP Pulse Ox 06/11/19 07:04 37.1 C 72 20 111/68 90 06/11/19 03:25 37.1 C 77 20 107/62 90 06/11/19 00:52 71 06/10/19 23:14 36.9 C 73 20 112/62 97 06/10/19 19:47 36.8 C 72 18 104/62 94 06/10/19 15:53 36.7 C 68 16 97/59 L 97 06/10/19 15:29 67 06/10/19 11:36 36.9 C 69 18 109/55 L 97 06/10/19 09:25 37.2 C Notes Mental Status: alert / awake / arousable and participated in evaluation Nausea / Vomiting: adequately controlled Pain: adequately controlled Airway Patency, RR, SpO2: stable & adequate BP & HR: stable & adequate Hydration State: stable & adequate
--- NOTE | 2019-06-11 09:57 | Medical Student H&P ---
Date of Service June 11, 2019 Impression / Recommendations Impression Patient is a 69 year old female with a history of hypertension who presented to the ED 3 days ago with acute UTI right flank pain, nausea and anorexia and chills. CT scan showed a 4mm uretero calculus in the right ureter and a 15mm non obstructing staghorn calculus in the upper pole of the left kidney. Urine culture was positive for nitrites and was cloudy in color. Urine culture was positive for proteus mirabalis that was resistant only to ciprofloaxin. Patient received IV ceftriaxone and stent was placed in right ureter. Today patient appears well and her right flank pain has subsided. She is afebrile and seems to be tolerating the stent well. Plan- Patient is to be discharged and treated for the following on an outpatient basis. Problem list Adm/Pelvic CT 06/08 showed uretero-lithiasis of right ureter Patient tolerated stent well. has mild dull right flank pain that is controlled with tyelol. Follow up with urolology in one week for stent removal and stone removal if stone is not passed. Pyelonephritis Urinanalysis 06/08 showed evidence of UTI and patients symptoms of fever, tachycardia and tachypnea fit criteria for pyelonephritis. Urine culture from 06/08 grew Proteus mirabilis that was resistant only to Cipro Was initially given ceftriaxone but continued to spike fevers and was escalated to ertapenem on 06/09 Treat on outpatient basis with bactrim x 14 days Pancreatic cyst adm/pelvic CT 06/08 showed 3.1 cm cystic lesion at the tail the pancreas. - Outpatient follow up with primary care provider for MRI or CT adm/pelvic CT 06/08 showed 15mm staghorn calculus in left kidney This calculus is not obstructing urine flow and is not causing the patient any symptoms. Out patient follow up with urology hypoxia Patients oxygen saturations remained in low 90's through out hospital stay. Patient does not appear to be in respiratory distress. Encourage patient to ambulate and hopefully this wioll improve oxygenation. sinus pressure Patients sinus pressure alleviated by pseudophedrine. Probably caused by sinusitis of viral etiology. Continue symptomatic with pseudophedrine fo the next few days if symptoms persist in combination with nasal rinse History & Physical Identifying Data LULA BEAR is a 69-year-old F admitted on June 08, 2019 11:45 who currently lives in [facility]] with []. LULA BEAR was admitted on a [201 voluntary]. The patient was brought to the ED by [self transport]. Information provided by the patient is considered to be [reliable]. Chief Complaint "[Right flank pain]". History of Present Illness Patient is a 69 years old female with history of hypertension and strong family history of kidney stones presented to the ED after experiencing right flank pain x 1 day. Pain was dull and colicky with intermittent sharp pain. Pain was severe 10/10 and did not radiate. She was also experiencing nausea and anorexia without vomiting. The patient was also experiencing chills and urinary frequency and urinary urgency. The patient denies any personal history of kidney stones but she has a strong family history of kidney stones in her siblings. CT showed 4mm calculus in the right kidney distal to the urethral junction and a large 15mm st aghorn calculus in the upper pole of the left kidney. CT scan also showed a pancreatic cyst on the tail of the pancreas Patient preferred to be discharged and receive treatment on an outpatient basis but was convinced to be admitted for observation. Patient was consulted by urology and a 24cm 6 hungarian stent was placed in her right kidney. She also has developed some sinus pressure. Patient was given pseudophedrine yesterday which has relieved her symptoms as of this morning. Today patient if feeling well. She had some dull right flank pain in the morning which has subsided. Pain is well controlled by tylenol. She does endorse some hematuria but that should be expected post stent. She has not experienced any intermittent sharp pain. She does not endorse fever or chills. She has had no nausea or vomiting and her appetite is back to baseline. She had a bowel movement this morning. No hematachezia or melena was present. Allergies Allergy/AdvReac Type Severity Reaction Status Date / Time Penicillins Allergy Rash Unverified 06/08/19 12:33 Home Medications Home Medications Medication Instructions Recorded Confirmed Type losartan-hydrochlorothiazide 1 tab PO DAILY 06/08/19 06/08/19 History acetaminophen [Mapap 650 mg PO Q4H PRN #30 tab 06/11/19 Rx (acetaminophen)] sodium chloride [Saline Mist] 2 sprays NA Q1H PRN #15 ml 06/11/19 Rx sulfamethoxazole-trimethoprim 1 tab PO BID #22 tab 06/11/19 Rx [Bactrim DS] tamsulosin 0.4 mg PO HS #14 cap 06/11/19 Rx Patient History Medical History Hypertension No significant past surgical history Social History Preferred Language: Mohawk Communication Ability: Effective Visual Impairment: No Limitations Hearing Ability: Normal Salt Plant Operator Required: No Beliefs That Will Affect Care: None marital status: Current Living Situation: Spouse Feels Safe at Home: Yes Smoking Status: Never smoker Hx Alcohol Use: Yes Alcohol type: beer and wine Hx Substance Use: No Review of Systems no fever, no chills, no sweats and no anorexia no diplopia no sinus pain/pressure and no sore throat no dyspnea no chest pain and no dyspnea as per Subjective / HPI and + nausea + urinary frequency; no dysuria and no urinary incontinence CN II-XII grossly intact Physical Exam Vital Signs (Past 24 Hours) Last Vital Signs Temp 37.1 C 06/11/19 07:04 Pulse 75 06/11/19 08:00 Resp 20 06/11/19 07:04 BP 111/68 06/11/19 07:04 Pulse Ox 90 06/11/19 07:04 General Apperance- Does not appear to be in any acute distress. Patient WN/WD Constitutional well developed and well nourished Neck trachea midline, no thyromegaly normal visual inspection Respiratory normal respiratory effort Auscultation: lungs clear to auscultation bilaterally Cardiovascular RRR, no murmur, no edema Rate/Rhythm: regular rate and regular rhythm Heart Sounds: no murmur Results & Data Laboratory Results 06/10/19 06/10/19 06/09/19 Range/Units 05:57 05:57 19:55 WBC 8.75 (4.8-10.8) K/uL RBC 3.86 L (4.2-5.4) M/uL Hgb 11.6 L (12.0-16.0) g/dL Hct 35.0 L (37-47) % MCV 90.7 (80-100) fL MCH 30.1 (25-34) pg MCHC 33.1 (32-36) g/dL RDW Std Deviation 44.0 (36.4-46.3) fL RDW Coeff of Nikita 13.3 (11.5-14.5) % Plt Count 132 (130-400) K/uL MPV 10.7 H (7.4-10.4) fL Immature Gran % (Auto) 0.2 % Neut % (Auto) 71.5 % Lymph % (Auto) 17.8 % [place] % (Auto) 9.4 % Eos % (Auto) 0.9 % Baso % (Auto) 0.2 % Immature Gran # (Auto) 0.02 (0.00-0.02) K/uL Neut # (Auto) 6.25 (1.4-6.5) K/uL Lymph # (Auto) 1.56 (1.2-3.4) K/uL [place] # (Auto) 0.82 H (0.11-0.59) K/uL Eos # (Auto) 0.08 (0-0.5) K/uL Baso # (Auto) 0.02 (0-0.2) K/uL Sodium 137 (136-145) mmol/L Potassium 3.9 (3.5-5.1) mmol/L Chloride 105 (98-107) mmol/L Carbon Dioxide 26 (21-32) mmol/L Anion Gap 6.0 (3-11) BUN 20 H (7-18) mg/dl Creatinine 0.99 (0.6-1.2) mg/dl Est Cr Clr Drug Dosing 50.9 ml/min Est GFR ( Amer) 67.9 Est GFR (Non-Af Amer) 58.6 BUN/Creatinine Ratio 19.8 (10-20) Glucose 94 (70-99) mg/dl Calcium 8.1 L (8.5-10.1) mg/dl Total Bilirubin 0.4 (0.2-1) mg/dl AST 22 (15-37) U/L ALT 18 (12-78) U/L Alkaline Phosphatase 42 L (45-117) U/L Total Protein 6.2 L (6.4-8.2) gm/dl Albumin 2.6 L (3.4-5.0) gm/dl Globulin 3.6 (2.5-4.0) gm/dl Albumin/Globulin Ratio 0.7 L (0.9-2) Urine Color Brown Urine Appearance Turbid A (Clear) Urine pH 6.0 (4.5-7.5) Ur Specific [place] 1.020 (1.000-1.030) Urine Protein 2+ H (Negative) Urine Glucose (UA) Negative (Negative) Urine Ketones Negative (Negative) Urine Blood 3+ H (Negative) Urine Nitrite Negative (Negative) Urine Bilirubin Negative (Negative) Urine Urobilinogen Negative (Negative) Ur Leukocyte Esterase 1+ H (Negative) Urine RBC >30 H (0-4) /hpf Urine WBC >30 H (0-5) /hpf Ur Epithelial Cells >30 H (0-5) /lpf Urine Bacteria 2+ H (Negative) Urine culture on 06/08 was positive for Proteus mirabilis and was found to be resistant only to Cipro Urine culture 06/09 had no growth Blood cultures from 06/09-no growth Diagnostic Findings CT scan- 4mm uretolithiasis in right ureter. 17mm nonobstructing staghorn calculus in uppper pole of right kidney. 3cm pancreatic cyst. Medications Administered Acetaminophen (Tylenol) 650 mg PO Q4H PRN PRN Reason: Pain or Fever Stop: 07/08/19 17:03 Last Admin: 06/11/19 07:55 Dose: 650 mg Documented by: [id number] Admin: 06/10/19 07:51 Dose: 650 mg Documented by: [id number] Admin: 06/09/19 16:40 Dose: 650 mg Documented by: [id number] Admin: 06/09/19 11:37 Dose: 650 mg Documented by: [id number] Admin: 06/08/19 23:39 Dose: 650 mg Documented by: [id number] HCTZ/Losartan Potassium (Hyzaar 50/12.5mg) 1 tab PO DAILY [place] Stop: 07/09/19 08:59 Last Admin: 06/11/19 07:54 Dose: 1 tab Documented by: [id number] Admin: 06/10/19 07:50 Dose: 1 tab Documented by: [id number] Admin: 06/09/19 07:58 Dose: 1 tab Documented by: [id number] Ertapenem 1,000 mg/ Sodium (Chloride) 60 mls @ 100 mls/hr IV Q24H [place] Stop: 06/19/19 18:59 Last Infusion: 06/10/19 19:05 Dose: 0 mls/hr Documented by: [id number] Admin: 06/10/19 18:28 Dose: 100 mls/hr Documented by: [id number] Infusion: 06/09/19 20:15 Dose: 0 mls/hr Documented by: [id number] Admin: 06/09/19 19:38 Dose: 100 mls/hr Documented by: [id number] Ibuprofen (Motrin) 600 mg PO Q6H PRN PRN Reason: Pain Stop: 07/10/19 11:46 Last Admin: 06/10/19 20:27 Dose: 600 mg Documented by: [id number] Oxycodone/Acetaminophen (Percocet 5mg/325mg) 1 tab PO Q4H PRN PRN Reason: Pain Stop: 06/22/19 17:03 Last Admin: 06/09/19 22:58 Dose: 1 tab Documented by: [id number] Admin: 06/08/19 21:32 Dose: 1 tab Documented by: [id number] Pseudoephedrine HCl (Suphedrine Sinus Congestion) 30 mg PO Q6H PRN PRN Reason: sinus congestion Stop: 07/10/19 18:25 Last Admin: 06/11/19 07:54 Dose: 30 mg Documented by: [id number] Tamsulosin HCl (Flomax) 0.4 mg PO HS [place] Stop: 07/08/19 20:59 Last Admin: 06/10/19 20:28 Dose: 0.4 mg Documented by: [id number] Admin: 06/09/19 19:40 Dose: 0.4 mg Documented by: [id number] Admin: 06/08/19 21:33 Dose: 0.4 mg Documented by: [id number]
--- NOTE | 2019-06-11 13:27 | Discharge Summary ---
Date of Service June 11, 2019 Admission HPI Per Admitting Provider Patient is a 69 years old female with history of hypertension and strong family history of kidney stones presented to the ED after experiencing right flank pain x 1 day. Pain was dull and colicky with intermittent sharp pain. Pain was severe 10/10 and did not radiate. She was also experiencing nausea and anorexia without vomiting. The patient was also experiencing chills and urinary frequency and urinary urgency. The patient denies any personal history of kidney stones but she has a strong family history of kidney stones in her siblings. CT showed 4mm calculus in the right kidney distal to the urethral junction and a large 15mm staghorn calculus in the upper pole of the left kidney. CT scan also showed a pancreatic cyst on the tail of the pancreas Patient preferred to be discharged and receive treatment on an outpatient basis but was convinced to be admitted for observation. Patient was consulted by urology and a 24cm 6 spanish stent was placed in her right kidney. She also has developed some sinus pressure x2 days. Patient was given pseudophedrine which has relieved her symptoms. Today patient if feeling well. She had some dull right flank pain in the morning which has subsided. She does endorse some hematuria but that should be expected post stent. She has not experienced any intermittent sharp pain. She does not endorse fever or chills. She has had no nausea or vomiting and her appetite is back to baseline. Principal Diagnosis Ureterolithiasis, UTI, Sepsis Discharge Exam Constitutional WD/WN, vitals as above Eyes + anicteric sclerae ENMT external ear and nose normal, oropharynx normal Nose: no nasal discharge, no sinus tenderness and no facial exam abnormality Neck trachea midline, no thyromegaly Respiratory normal respiratory effort, lungs clear to auscultation Cardiovascular RRR, no murmur, no edema Gastrointestinal (Abdomen) normal bowel sounds, soft, nontender, no hepatosplenomegaly Musculoskeletal Extremities: extremities normal to inspection; no cyanosis and no clubbing Skin no rashes, warm and dry Neurologic moves all extremities and awake; no focal motor deficits Psychiatric A+Ox3, euthymic affect Discharge Data Allergies Allergy/AdvReac Type Severity Reaction Status Date / Time Penicillins Allergy Rash Unverified 06/08/19 12:33 Consultations 06/08/19 13:02 ED Decision to Admit Stat 06/08/19 17:04 Consult Case Management - Discharge Planning Routine Consult Urology Routine Procedures Performed Operation Date: 06/08/19 15:25 Actual Procedures p Cystoscopy, Right Ureteral Stent Placement(Not Applicable) - Virginia Fontana MD Ordered Studies 06/08/19 11:13 CT abd pelvis wo con Stat 06/08/19 14:30 FL KUB Routine FL fluoroscopy <1hr Routine Hospital Course (1) Ureteral calculus, right: S/p right ureteral stent with Dr. Fontana on 06/08 for a 4 mm stone that was obstructing on the right causing hydronephrosis No renal failure, but with UTI and sepsis as below. Symptomatically much improved - received abx in the form of ertapenem as below and will convert to oral antibiotics x2 weeks total - Pain and nausea control were provided PRN - 2 week outpatient follow up for cystoscopy (2) Acute UTI: With evidence of UTI on urinalysis upon admission Urine culture from 06/08 growing Proteus mirabilis resistant only to Cipro Was initially on ceftriaxone but continued to spike fevers and was broadened to ertapenem on 06/09 -also with some sinus pressure-question if has acute sinusitis causing fevers, however Rocephin and ertapenem would also treat for this -fevers persisted for a couple of days but then resolved on day of discharge -Repeat urine culture now with no growth - will convert to oral Bactrim x 2-week course total upon discharge (3) Sepsis: POA secondary to UTI, with fever, tachycardia Also with bilateral maxillary facial pressure, could be acute sinusitis? Either way, Rocephin and ertapenem should cover for both Fevers now resolved as above Ur cx with Proteus resistant to Cipro Broadened to Ertapenem on evening of 06/09 for persistent fevers, had repeat UA and Ur cx-no growth BCxs 06/09 NGTD -convert to Bactrim on dc as above (4) Hypoxia: Could be secondary to atelectasis Mild, POx 92% on RA today and improving overall -continue incentive spirometry -encouraged mobilization -no O2 needed (5) Sinus pressure: as above, could be sinusitis -continue nasal saline, ibuprofen, Sudafed 30 mill grams p.o. every 6 hours as needed -continue abx Symptoms much improved on day of dc (6) Diastolic dysfunction: Echo ordered on 06/09 for unclear reasons. Shows normal EF 60-65% with Grade II diastolic dysfunction. No symptoms of shortness of breath, no LE edema. - No inpatient needs (7) Cyst of pancreas: CT a/p on 06/08 showed 3.1 cm cystic lesion at the tail the pancreas. - Outpatient follow up for MRI or CT (8) DVT prophylaxis: SCDs were provided Disposition-stable for dc to home Total Time Total Time Spent Total Time Spent (In Minutes): >30 min Total Time Includes: Examination of the Patient, Discharge Planning and Medication Reconciliation Discharge Plan Discharge Items Patient Disposition: Home - Self-Care Reason For Visit: UROLITHIASIS Condition on Discharge: Good Activity: Resume your previous activity Lifting: Gradually increase as tolerated Bathing: No limitations Exercise/Sports: As tolerated Non-emergency contact: Primary Care Provider and Urologist Follow-up/Referrals: Mack Ocampo [Primary Care Provider] - 06/19/19 1:40 pm (Please, follow up with Mack Ocampo PA-C on TuesdayJune 19 at 1:40 pm. *The office is located at [address] [place] [address] in [place]. If you need to change this appointment, call the office at [phone].) Virginia Fontana MD [Physician] - 06/22/19 (Please, follow up at [facility] in [facility] with Dr. Virginia Fontana. *A nurse from the office is supposed to call you regarding the the appointment date and time. When I spoke with the nurse today, she mentioned a tenative follow up date of June 22 but she will confirm that with you by phone. If you have any questions, call the office at [phone].) Addtl Router Operator Radial Provider Instructions: Please finish out the course of antibiotics as prescribed (Bactrim). Please take Flomax once daily preferably in the evening to help with pain from your stent and for stone passage. You can continue to strain your urine at home and please let the Urologist know if you collect a stone so it can be analyzed. Pending Studies at Discharge: Yes (Final Blood cultures) Stand-Alone Forms: My [facility], Important Visit Information Medications and DC Order Prescriptions: New acetaminophen [Mapap (acetaminophen)] 325 mg Tablet 650 mg PO Q4H PRN (Reason: pain) Qty: 30 RF: 0 tamsulosin 0.4 mg Capsule 0.4 mg PO HS Qty: 14 RF: 0 sodium chloride [Saline Mist] 0.65 % Aerosol,[place] 2 sprays NA Q1H PRN (Reason: nasal congestion) Qty: 15 RF: 0 sulfamethoxazole-trimethoprim [Bactrim DS] 800-160 mg tablet 1 tab PO BID Qty: 22 RF: 0 Continued losartan-hydrochlorothiazide 50-12.5 mg tablet 1 tab PO DAILY RF: 0 Discharge Orders: Discharge Order (Routine); Ordered 06/11/19 Ordered By: Jade Granados Admission Data Admit Date/Time: 06/10/19 11:45 Attending Provider: Jade Granados Admit Provider: Ashley Yeager Primary Care Provider: Mack Ocampo Other Providers: Ashley Yeager ; Virginia Fontana ; Mack Dailey ; Chad John ; Devendra Carvalho. ; Ty Nicolas V ; Mark Frye Other Interventions: Discharge Summary Assessment (RN) Last Done: 06/11/19 13:37 DC Date/Time DO NOT enter until pt leaves facility: 06/11/19 15:01
== END 2019-06-11 15:01 | disposition home or self-care (01) | DRG 854 ==
LOC: ED 10:01 → 2N 15:09 → ASU 15:09 → SUATTDRO 15:10 → 2N 06-09 01:12
DX: Z16.23 Resistance to quinolones and fluoroquinolones; R93.1 Abnormal findings on diagnostic imaging of heart and coronary circulation; Z87.440 Personal history of urinary (tract) infections; Z79.899 Other long term (current) drug therapy; J01.90 Acute sinusitis, unspecified; N13.6 Pyonephrosis; B96.4 Proteus (mirabilis) (morganii) as the cause of diseases classified elsewhere; K86.2 Cyst of pancreas; A41.9 Sepsis, unspecified organism; Z88.0 Allergy status to penicillin; I10 Essential (primary) hypertension; R09.02 Hypoxemia